=== PATIENT | female | born 1985 | race Caucasian/White ===

== ENCOUNTER → 2020-11-15 15:09 | Outpatient (BNVA) | payer MEDICAID, SELFPAY | PROVIDERS: Visit Provider Nurse Practitioner Women's Health | DX: N92.6 Irregular menstruation, unspecified (principal) | CPT/HCPCS: 81025 ==

== ENCOUNTER → 2020-12-12 08:51 | Outpatient (BNVA) | payer MEDICAID, SELFPAY | PROVIDERS: Visit Provider Obstetrics & Gynecology | DX: Z34.80 Encounter for supervision of other normal pregnancy, unspecified trimester (principal) | CPT/HCPCS: 80307; 84315; 84443; 85025; 86592; 86762; 86803; 86850; 86900; 87086; 87340; 87491; 87591; 87624; 87661; 87806 ==

== ENCOUNTER → 2021-02-09 14:13 | Outpatient (BNVA) | payer MEDICAID, SELFPAY | PROVIDERS: Visit Provider Obstetrics & Gynecology | DX: Z34.80 Encounter for supervision of other normal pregnancy, unspecified trimester (principal); N89.8 Other specified noninflammatory disorders of vagina | CPT/HCPCS: 87481; 87512; 87798; 87799 ==

== ENCOUNTER 2021-03-27 09:08 | Outpatient (CLI) | payer MEDICAID, SELFPAY ==
[2021-03-27 09:27] LABS: Basophils % 0.3 %; Eosinophils # 0.2 10^3/uL (0.0-0.8); Eosinophils % 2.3 %; Hematocrit 39.5 % (37.0-47.0); Hemoglobin 12.8 g/dL (11.5-15.3); Lymphocytes # 1.6 10^3/uL (0.8-4.8); Lymphocytes % 16.3 %; Mean Corpuscular HGB Conc 32.4 g/dL (30.0-36.0); Mean Corpuscular Hemoglobin 30.8 pg (28.0-34.0); Mean Corpuscular Volume 95.2 fl (81-99); Mean Platelet Volume 9.2 fL (7.4-10.4); Monocytes # 0.4 10^3/uL (0.2-0.9); Neutrophils # 7.49 10^3/uL (1.8-7.7); Neutrophils % 75.2 %; Nucleated Red Blood Cells % 0 %; Platelet Count 247 10^3/cmm (130-400); Red Blood Count 4.15 10^6/uL (4.1-5.3); Red Cell Distribution Width 12.1 % (12.1-15.1)
[2021-03-27 10:00] LABS: Glucose Tolerance 1 Hour Gest 136 mg/dL; Thyroid Stimulating Hormone 2.06 uIU/mL (0.27-4.20)
== END 2021-03-27 09:09 | disposition home or self-care (01) ==
LOC: LAB 09:12
PROVIDERS: Visit Provider Obstetrics & Gynecology
DX: Z34.80 Encounter for supervision of other normal pregnancy, unspecified trimester (principal)
CPT/HCPCS: 36415; 82950; 84315; 84443; 85025

== ENCOUNTER → 2021-05-26 15:00 | Outpatient (BNVA) | payer MEDICAID, SELFPAY | PROVIDERS: Visit Provider Obstetrics & Gynecology | DX: Z34.80 Encounter for supervision of other normal pregnancy, unspecified trimester (principal) | CPT/HCPCS: 84315; 87081 ==

== ENCOUNTER 2021-06-10 08:31 | Inpatient (IN) | payer MEDICAID, SELFPAY ==
[2021-06-10] VITALS (25 sets, daily range): BP systolic 86–126; BP diastolic 48–74; PULSE 62–95; RESP 16–17; TEMP 36.2–37.2; BMI 32.3
[2021-06-10] MEDS: miSOPROStol 100 mcg tablet 25 MCG VAGINAL ×4 (08:49→23:48)
[2021-06-10 09:17] LABS: Basophils % 0.2 %; Eosinophils # 0.2 10^3/uL (0.0-0.8); Eosinophils % 1.4 %; Hematocrit 39.9 % (37.0-47.0); Hemoglobin 13.4 g/dL (11.5-15.3); Lymphocytes # 2.8 10^3/uL (0.8-4.8); Mean Corpuscular HGB Conc 33.6 g/dL (30.0-36.0); Mean Corpuscular Hemoglobin 30.9 pg (28.0-34.0); Mean Corpuscular Volume 91.9 fl (81-99); Mean Platelet Volume 11.4 fL (7.4-10.4); Monocytes # 0.9 10^3/uL (0.2-0.9); Monocytes % 6.1 %; Neutrophils # 10.11 10^3/uL (1.8-7.7); Neutrophils % 71.5 %; Nucleated Red Blood Cells % 0 %; Platelet Count 221 10^3/cmm (130-400); Red Blood Count 4.34 10^6/uL (4.1-5.3); Red Cell Distribution Width 13.2 % (12.1-15.1); White Blood Count 14.1 10^3/uL (4.0-10.0)
--- NOTE | 2021-06-10 17:10 | PM.OPHPUD ---
Labor & Delivery H&P Update Date of Procedure: June 10, 2021 Date H&P Performed: 06/02/21 H&P update information: I have reviewed H&P completed within last 30 days, I have examined patient prior to procedure and No changes to prior documentation Changes to previous documentation: The patient is here for elective induction at term. She is 39 0/7 weeks. Admission Diagnosis: Related Problem List Diagnoses (1) Supervision of other normal : (2) Abnormal Pap smear of cervix: (3) GERD (gastroesophageal reflux disease): (4) Anxiety:
[2021-06-10] MEDS: famotidine 20 mg Tablet PO (21:33)
[2021-06-10] MEDS: BuSPIRONE 10 mg Tablet 5 MG PO (21:33)
[2021-06-11] VITALS (125 sets, daily range): BP systolic 91–164; BP diastolic 39–109; PULSE 73–108; RESP 16–18; TEMP 36.4–38.7; O2SAT 93–100
[2021-06-11] MEDS: promethazine 25 mg/mL SDV 1 mL IM (00:21)
[2021-06-11] MEDS: morphine 4 mg/mL SDV 1 mL 8 MG IM (00:21)
[2021-06-11] MEDS: BuSPIRONE 10 mg Tablet 5 MG PO ×2 (07:59→20:08)
[2021-06-11] MEDS: famotidine 20 mg Tablet PO ×2 (08:00→20:09)
[2021-06-11] MEDS: dextrose 5%-lactated ringers 1,000 ML 125 ML IV ×2 (08:00→17:15)
[2021-06-11] MEDS: oxytocin 30 UNIT/500 ML BAG IV (08:00)
[2021-06-11] MEDS: lactated ringers 1,000 ML 999 ML IV ×3 (11:40→19:41)
--- NOTE | 2021-06-11 12:35 | ANES.PREANE2 ---
Pre-Anesthetic Assessment Height/Weight: Height 1.57 m Weight 80.286 kg Temp Pulse Resp BP 98.2 F 77 18 107/56 06/11/21 11:28 06/11/21 12:26 06/11/21 12:11 06/11/21 12:26 Preop Diagnosis: labor epi Familial anesthetic complications: none Was Beta Kan taken within 24 hours: N/A Was Clonidine taken within 24 hours: N/A Last Intake: 08:00 Social Tobacco and No alcohol 1/2 pack(s) per day 10+ pack years Exam alert, oriented x 3, clear to auscultation bilaterally and regular rate & rhythm Airway Submandibular: within normal limits Cervical ROM: within normal limits Mallampati: Class I Dentition: full Pulmonary Asthma CV/HEM None reported None reported Hepatic None reported GI Gastroesophageal Reflux Disease Metabolic None reported Musc/skel None reported Neuropsych Anxiety and Depression Anesthetic Plan ASA status: 2 Anesthesia: Regional (specify below) (epidural) Risk of > 500 ml blood loss (7ml/kg in children): No Medications/Allergies Home Medications Medication Instructions Recorded Confirmed Last Taken Type albuterol sulfate 2.5 mg INHALATION Q4H PRN 11/15/20 06/10/21 Unknown History docusate sodium 100 mg capsule 100 mg PO DAILY PRN 11/15/20 06/10/21 06/09/21 21:30 History (Colace) metoclopramide HCl 5 mg tablet 5 mg PO DAILY PRN 11/15/20 06/10/21 06/09/21 21:30 History (Reglan) cetirizine 10 mg capsule (Zyrtec) 10 mg PO DAILY PRN #30 cap 11/29/20 06/10/21 06/09/21 21:30 Rx prenat.vits,louis,[id number] 1 tab PO DAILY #30 tab 02/08/21 06/10/21 06/09/21 21:30 Rx buspirone 5 mg tablet 5 mg PO BID #60 tab 03/27/21 06/10/21 06/10/21 07:30 Rx omeprazole 40 mg capsule,delayed 40 mg PO BID #60 cap 03/27/21 06/10/21 06/09/21 21:30 Rx release Allergies Allergy/AdvReac Type Severity Reaction Status Date / Time No Known Allergies Allergy Verified 06/02/21 15:05 Current Medications Generic Name Dose Route Start Last Admin Trade Name Chantell PRN Reason Stop Dose Admin Buspirone HCl 5 mg 06/10/21 21:00 06/11/21 07:59 Buspirone 10 Mg Tablet PO 5 mg BID RICARDO Administration Famotidine 20 mg 06/10/21 21:00 06/11/21 08:00 Famotidine 20 Mg Tablet PO 20 mg BID RICARDO Administration Dextrose/Lactated Ringer's 1,000 mls @ 125 mls/hr 06/10/21 08:25 06/11/21 08:00 Dextrose 5%-Lactated Ringers IV 125 mls/hr .Q8H PRN Administration per label comments Oxytocin 30 unit in 500 mls @ 1 mls/hr 06/11/21 08:00 06/11/21 12:00 Pitocin IV 10 milliunit/min .Q24H RICARDO 10 mls/hr Titration Protocol 1 MILLIUNIT/MIN Lactated Ringer's 1,000 mls @ 999 mls/hr 06/11/21 11:30 06/11/21 11:40 Lactated Ringers IV 999 mls/hr .Q1H1M PRN Administration See label comments PFSH Anesthesia Medical History Anxiety No pertinent past medical history neghx: htn,dm,thyroid,dvt/pe PCP: None Surgical History Hx of cholecystectomy (~2007) Hx of dilation and curettage (2011) blightetd ovum Family History Family/Other Breast cancer Maternal Great Grandmother--dx age 70's Grandmother Diabetes Paternal Denies family history of Colon cancer Ovarian cancer Heart disease Hypercholesteremia Hypertension Uterine cancer Thyroid disease Stroke Female Reproductive History : 4 Data Anesthesia : 06/10/21 08:40 Short CBC 06/10/21 Range/Units 08:40 WBC 14.1 H (4.0-10.0) 10^3/uL Hgb 13.4 (11.5-15.3) g/dL Hct 39.9 (37.0-47.0) % MCV 91.9 (81-99) fl Plt Count 221 (130-400) 10^3/cmm Neut % (Auto) 71.5 % Neut # (Auto) 10.11 H (1.8-7.7) 10^3/uL Cardiac Studies: No Data to Display
--- NOTE | 2021-06-11 12:48 | P.PN_ITS ---
Subjective Subjective: The patient has received 4 doses of cytotec and is now on pitocin. AROM performed with clear fluid. status is overall very reassuring with a category 1 tracing. SVE: 3/80/-2 Vitals/I&O/Wt Last Vital Signs Temp 98.2 F 06/11/21 11:28 Pulse 92 06/11/21 12:45 Resp 18 06/11/21 12:11 BP 139/70 06/11/21 12:43 Pulse Ox 93 06/11/21 12:45 06/10/21 06/11/21 06/11/21 22:59 06:59 14:59 Intake Total 800 / 800 400 / 1200 1027.00 / 1027.00 Balance 800 / 800 400 / 1200 1027.00 / 1027.00 Weight last 48 hrs Weight 177 lb Data : 06/10/21 08:40 A&P Assessment and plan (1) Supervision of other normal : continue pitocin induction anticipate Status: Acute Attestations Medical Necessity Statement*: She will be here 2 midnights Coding Level of Care Code Acute Warehouse Director for Chg Fwd Diagnoses Supervision of other normal Z34.80
--- NOTE | 2021-06-11 13:01 | ANES.PROC ---
Anesthesia Procedures Procedure/Date: 06/11/21 Epidural: Time Out Performed: Yes Consents Signed: Procedure Consent and NPO Consent Consent: requested by attending/covering physician, from patient, risks and benefits reviewed and patient agrees to proceed Lumbar Level: L3-L4 Epidural position: sitting Epidural procedure: sterile prep of area (betadine), 1% lidocaine to numb the area (3ml), 18 g needle, neg for paresthesia, test dose given, 1.5% xylocaine 1:200k epi (3ml/2ml), 0.2% Ropivacaine bolus ml (5ml), placed PCEA, no systemic response, sterile dressing applied, L.U.D. no apparent complications and 0.2% Ropiavacaine @ mls/hr (10ml/hr)
--- NOTE | 2021-06-11 14:39 | ANES.PROC ---
Anesthesia Procedures Procedure/Date: 06/11/21 Epidural bolus Procedure Narrative: Pt complaining of pressure. No sharp pain noted. RN stated Pt 5 cm dilated. Pt given 5ml Bupivacaine 0.5% MPF and 100mcg Fentanyl MPF via epidural. Pt tolerated well.
--- NOTE | 2021-06-11 20:05 | ANES.PROC ---
Anesthesia Procedures Procedure/Date: 06/11/21 Epidural: Time Out Performed: Yes Consents Signed: Procedure Consent and NPO Consent Consent: requested by attending/covering physician, from patient, risks and benefits reviewed and patient agrees to proceed Lumbar Level: L4-L5 Epidural position: sitting Epidural procedure: sterile prep of area (betadine), 1% lidocaine to numb the area (3ml), 18 g needle, neg for paresthesia, test dose given, 1.5% xylocaine 1:200k epi (3ml/2ml), 0.2% Ropivacaine bolus ml (5ml), placed PCEA, no systemic response, sterile dressing applied, L.U.D. no apparent complications and 0.2% Ropiavacaine @ mls/hr (10ml/hr) Additional Comments: Called to OB4 with pt C/o right side and back pain. Epidural catheter noted to be pulled back 3-4cm at skin from insertion. Spoke with pt and decided to D/c catheter with tip intact and replace epidural
--- NOTE | 2021-06-11 20:59 | P.PN_ITS ---
Subjective Subjective: The patient has been dilated to 7 cm for about 4 1/2 hours without change. She is having regular contractions. Over the past hour, she has had 2 decelerations followed now by minimal variability. Baseline 160's, minimal variability without decelerations. no accelerations. I discussed with the patient and her family that I would recommend proceeding to at this time. We have given ample time for the baby to descend and it appears to be a case of CPD. They agree and would like to proceed with at this time. Urgent ordered. Vitals/I&O/Wt Last Vital Signs Temp 99.0 F 06/11/21 19:18 Pulse 86 06/11/21 20:46 Resp 16 06/11/21 15:47 BP 96/53 06/11/21 20:46 Pulse Ox 98 06/11/21 20:06 06/11/21 06/11/21 06/11/21 06:59 14:59 22:59 Intake Total 400 / 1200 1027.00 / 1027.00 1406.25 / 2433.25 Output Total 300 / 300 Balance 400 / 1200 1027.00 / 1027.00 1106.25 / 2133.25 Weight last 48 hrs Weight 177 lb Physical Exam : MANUAL OB EXAM: dilated 7 cm, effaced fully and station -1 Urinary Catheter Management: Richardson Latex Free: Cath Placed During This Visit: yes Reason for Continuing Indwelling Catheter: Required Immobilization for Trauma or Surgery or Anesthesia Urinary Catheter Date of Insertion: 06/11/21 Urinary Catheter Time of Insertion: 14:02 Data : 06/10/21 08:40 A&P Assessment and plan (1) intolerance to labor, delivered, current hospitalization: Status: Acute (2) CPD (cephalo-pelvic disproportion): proceeding with at this time. Status: Acute Attestations Medical Necessity Statement*: The patient will be here for two midnights. Coding Level of Care Code Acute [facility] for g Fwd Diagnoses intolerance to labor, delivered, current hospitalization O77.9 CPD (cephalo-pelvic disproportion) O33.9
[2021-06-11] MEDS: citric acid-sodium citrate 30 mL UDC PO (21:26)
[2021-06-11] MEDS: metoclopramide 5 mg/mL SDV 2 mL 10 MG IVP (21:29)
--- NOTE | 2021-06-11 22:26 | P.OP_ITS ---
Operative Report Date of procedure: June 11, 2021 Pre-op diagnosis: Preop Diagnosis CPD, intolerance to labor Post-op diagnosis: same Post-op findings: term female in the cephalic presentation with a single nuchal cord Procedure done: primary Specimens removed/disposition: placenta-discarded Surgeon: Jillian Patel Anesthesia: Epidural Estimated blood loss (mL): 200 IV fluids (mL): 1,000 Urine output (mL): 300 Complications: none Findings: term female in the cephalic presentation. Normal appearing uterus, tubes and ovaries Condition: stable Disposition: floor Procedure: The patient was taken to the operating room where spinal anesthesia was administered and found to be adequate. She was prepped and draped in the normal sterile fashion in the dorsal supine position with a leftward tilt. A Pfannenstiel skin incision was made and carried down to the underlying layer of fascia. The fascia was nicked in the midline and extended laterally with the Barrett scissors. The fascia was then tented up and the rectus muscles dissected off sharply. The rectus muscles were and the peritoneum entered bluntly with the digit. The peritoneal incision was extended superiorly and inferiorly with good visualization of the bladder. The Raul O retractor was placed. It was clear of any bowel or omentum. The bladder flap was created sharply with the Metzenbaum scissors. A low transverse uterine incision was made and carried down to the bag of water. The bag of water was ruptured and t he uterine incision extended cephalocaudad. The scalp was grasped and brought through the incision. The nose and mouth were bulb suctioned. The shoulders and body delivered atraumatically. The baby was allowed to rest, while being dried, for 1 minute and then the cord was clamped and cut. The baby was handed to the waiting academic adviser. The placenta was delivered by expression. The uterus was exteriorized and cleared of all clots and debris. The uterine incision was closed with 0 Vicryl in a running fashion. A second imbricating layer of 3-0 Monocryl was used to close the uterus. The bladder flap was closed with 3-0 Monocryl. There was excellent hemostasis. The Raul O retractor was removed. The uterus was returned to the abdomen. The peritoneum was closed with 3-0 Monocryl, incorporating the rectus muscle. The fascia was closed with 0 Vicryl in 2 separate sutures overlapping in the midline. The skin was closed with absorbable jakub. Apgars on baby 8 at 1 minute and 9 at 5 minutes. weight 7 pounds 4 ounces. Mother and baby were stable post delivery.
[2021-06-12] VITALS (13 sets, daily range): BP systolic 111–133; BP diastolic 57–87; PULSE 66–92; RESP 15–18; TEMP 36.7–37.6; O2SAT 96–99
[2021-06-12] MEDS: dextrose 5%-lactated ringers 1,000 ML 125 ML IV ×2 (00:15→08:26)
[2021-06-12] MEDS: ketorolac 30 mg/mL INJ IVP ×2 (00:23→05:23)
[2021-06-12] MEDS: oxyCODONE-APAP 5-325 mg Tablet PO ×4 (00:24→22:38)
[2021-06-12] MEDS: acetaminophen 325 mg Tablet 650 MG PO (01:02)
--- NOTE | 2021-06-12 03:41 | PC.NURSE ---
This nurse pulled 1 buspirone 10mg tablet from the the pts med box in the med room, after scanning the medication this nurse dropped the medication on the floor. This nurse then went and pulled a second buspirone 10 mg tablet from the pts box in the med room and gave to the pt to take. This nurse and Nita Carrizales RN wasted the first tablet together.
--- NOTE | 2021-06-12 07:49 | P.PN_ITS ---
Subjective Subjective: The patient is doing well this morning. Slight amount of pain on her right side. Otherwise, she is ambulating, tolerating a clear diet and pain is controlled. Vitals/I&O/Wt Last Vital Signs Temp 98.6 F 06/12/21 06:15 Pulse 71 06/12/21 06:15 Resp 16 06/12/21 06:15 BP 118/65 06/12/21 06:15 Pulse Ox 98 06/12/21 06:15 06/11/21 06/12/21 06/12/21 22:59 06:59 14:59 Intake Total 2113.434 / 3140.434 1000 / 4140.434 Output Total 900 / 900 1400 / 2300 Balance 1213.434 / 2240.434 -400 / 1840.434 Weight last 48 hrs Weight 177 lb Physical Exam Const: COMMON NORMALS: no acute distress, patient oriented x3, no limitations, healthy appearing, alert and well nourished GENERAL APPEARANCE: cooperative, comfortable, well kempt and well developed ORIENTATION/CONSCIOUSNESS: Yes awake, Yes oriented to person, Yes oriented to place and Yes oriented to time Resp: COMMON NORMALS: normal respiratory effort EFFORT & INSPECTION: Yes able to speak in complete sentences GI: COMMON NORMALS: Soft to palpation and non-tender INSPECTION: Yes abdominal distension PALPATION: Yes Soft to palpation Extremity: COMMON NORMALS: normal to inspection and no calf tenderness Neuro: COMMON NORMALS: patient oriented x3 SENSORIUM/ORIENTATION: Yes alert, Yes oriented to person, Yes oriented to place and Yes oriented to time Psych: APPEARANCE: Yes well kempt Urinary Catheter Management: Richardson Latex Free: Cath Placed During This Visit: yes Reason for Continuing Indwelling Catheter: Required Immobilization for Trauma or Surgery or Anesthesia Urinary Catheter Date of Insertion: 06/11/21 Urinary Catheter Time of Insertion: 14:02 Data : 06/10/21 08:40 A&P Assessment and plan (1) CPD (cephalo-pelvic disproportion): doing well postoperatively routine post op plan increase ambulation to have flatus Status: Acute Attestations Medical Necessity Statement*: she has already been here 2 midnights Coding Level of Care Code Acute 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
[2021-06-12] MEDS: prenatal vitamin Capsule 1 CAP PO (08:26)
[2021-06-12] MEDS: docusate sodium 100 mg Capsule PO ×2 (08:26→17:54)
[2021-06-12] MEDS: ferrous sulfate EC 325 mg Tablet PO ×2 (08:29→17:54)
--- NOTE | 2021-06-12 08:56 | PC.NURSE ---
patient ambulated at this time, no c/o dizziness or lightheadedness. Patient tolerated walking well.
[2021-06-12] MEDS: BuSPIRONE 10 mg Tablet 5 MG PO ×2 (09:28→17:54)
[2021-06-12] MEDS: famotidine 20 mg Tablet PO ×2 (09:28→17:54)
[2021-06-12 10:47] LABS: Hematocrit 31.9 % (37.0-47.0); Hemoglobin 10.7 g/dL (11.5-15.3); Mean Corpuscular HGB Conc 33.5 g/dL (30.0-36.0); Mean Corpuscular Hemoglobin 31.2 pg (28.0-34.0); Platelet Count 170 10^3/cmm (130-400); Red Blood Count 3.43 10^6/uL (4.1-5.3); Red Cell Distribution Width 13.3 % (12.1-15.1); White Blood Count 16.6 10^3/uL (4.0-10.0)
[2021-06-12] MEDS: ibuprofen 800 mg tablet PO ×2 (15:07→21:28)
[2021-06-12] MEDS: cetirizine 10 mg Tablet PO (17:54)
[2021-06-13 04:18] VITALS: RESP 15
[2021-06-13] MEDS: oxyCODONE-APAP 5-325 mg Tablet PO ×2 (04:18→09:40)
[2021-06-13 04:19] VITALS: BP 104/57; PULSE 70; TEMP 36.6; O2SAT 98
[2021-06-13] MEDS: BuSPIRONE 10 mg Tablet 5 MG PO (08:18)
[2021-06-13] MEDS: docusate sodium 100 mg Capsule PO (08:19)
[2021-06-13] MEDS: cetirizine 10 mg Tablet PO (08:19)
[2021-06-13] MEDS: ibuprofen 800 mg tablet PO (08:19)
[2021-06-13] MEDS: famotidine 20 mg Tablet PO (08:19)
[2021-06-13 09:40] VITALS: RESP 18
[2021-06-13 11:04] VITALS: BP 106/64; PULSE 68; RESP 16; TEMP 36.7; O2SAT 99
--- NOTE | 2021-06-13 11:47 | PM.DCS ---
Discharge Providers Date of Admission: 06/10/21 08:31 Date of Discharge: June 13, 2021 Attending Provider at Admission: Jillian Patel MD Attending Provider at Discharge: Jillian Patel MD Diagnoses at Discharge Discharge Diagnosis (1) CPD (cephalo-pelvic disproportion): Status: Acute Reason for Visit Reason for Visit: Induction of labor Hospital Course Hospital Course The patient was admitted for induction of labor at term. She achieved 7 cm dilation and had arrest of labor. She underwent a primary . She did well postoperatively and was ready for discharge on day #2 Physical Exam Narrative: Doing well this morning. Abdomen is still distended. She reports that she is passing gas. She is not ambulating much per nurse. Const: COMMON NORMALS: no acute distress, patient oriented x3, no limitations, healthy appearing, alert and well nourished GENERAL APPEARANCE: cooperative, comfortable, well kempt and well developed ORIENTATION/CONSCIOUSNESS: Yes awake, Yes oriented to person, Yes oriented to place and Yes oriented to time Resp: COMMON NORMALS: normal respiratory effort EFFORT & INSPECTION: Yes able to speak in complete sentences GI: COMMON NORMALS: Soft to palpation and non-tender INSPECTION: Yes abdominal distension PALPATION: Yes Soft to palpation Extremity: COMMON NORMALS: no calf tenderness Neuro: COMMON NORMALS: patient oriented x3 SENSORIUM/ORIENTATION: Yes alert, Yes oriented to person, Yes oriented to place and Yes oriented to time Psych: APPEARANCE: Yes well kempt Urinary Catheter Management: Richardson Latex Free: Cath Placed During This Visit: yes, but has since been removed by the nurse Reason for Continuing Indwelling Catheter: Decision to DC Catheter Urinary Catheter Date of Insertion: 06/11/21 Urinary Catheter Time of Insertion: 14:02 Date Urinary Catheter Removed: 06/12/21 Time Urinary Catheter Discontinued: 08:30 Discharge Data Studies Completed and Pending Laboratory Results WBC 16.6 10^3/uL (4.0-10.0) H 06/12/21 10:25 RBC 3.43 10^6/uL (4.1-5.3) L 06/12/21 10:25 Hgb 10.7 g/dL (11.5-15.3) L 06/12/21 10:25 Hct 31.9 % (37.0-47.0) L 06/12/21 10:25 MCV 93.0 fl (81-99) 04/18/22 10:25 MCH 31.2 pg (28.0-34.0) 06/12/21 10:25 MCHC 33.5 g/dL (30.0-36.0) 06/12/21 10:25 RDW 13.3 % (12.1-15.1) 06/12/21 10:25 Plt Count 170 10^3/cmm (130-400) 06/12/21 10:25 MPV 11.0 fL (7.4-10.4) H 06/12/21 10:25 Neut % (Auto) 71.5 % 06/10/21 08:40 Lymph % (Auto) 20.0 % 06/10/21 08:40 [place] % (Auto) 6.1 % 06/10/21 08:40 Eos % (Auto) 1.4 % 06/10/21 08:40 Baso % (Auto) 0.2 % 06/10/21 08:40 Neut # (Auto) 10.11 10^3/uL (1.8-7.7) H 06/10/21 08:40 Lymph # (Auto) 2.8 10^3/uL (0.8-4.8) 06/10/21 08:40 [place] # (Auto) 0.9 10^3/uL (0.2-0.9) 06/10/21 08:40 Eos # (Auto) 0.2 10^3/uL (0.0-0.8) 06/10/21 08:40 Baso # (Auto) 0.0 10^3/uL (0.0-0.1) 06/10/21 08:40 Nucleated RBC % (auto) 0 % 06/10/21 08:40 Nucleated RBCs # 0.0 /100WBC 06/10/21 08:40 Vitals Last Vital Signs Temp 98.0 F 06/13/21 11:04 Pulse 68 06/13/21 11:04 Resp 16 06/13/21 11:04 BP 106/64 06/13/21 11:04 Pulse Ox 99 06/13/21 11:04 Discharge Plan Discharge Patient Disposition: Home Condition: Stable Prescriptions: New ibuprofen 800 mg Tablet 800 mg PO TID Qty: 30 0RF oxycodone-acetaminophen 5-325 mg Tablet 1 tab PO Q4H PRN (Reason: Moderate To Severe Pain) Qty: 30 0RF docusate sodium 100 mg Capsule 100 mg PO BID Qty: 60 0RF ferrous sulfate 325 mg (65 mg iron) Tablet,Delayed Release (Dr/Ec) 325 mg PO BIDWM Qty: 60 2RF simethicone 80 mg Tablet,Chewable 80 mg PO QID PRN (Reason: Gas distention) Qty: 30 0RF Continued albuterol sulfate 2.5 mg /3 mL (0.083 %) solution for nebulization 2.5 mg inhalation Q4H PRN (Reason: Adequate Ventilation) 0RF docusate sodium [Colace] 100 mg capsule 100 mg PO DAILY PRN (Reason: Constipation) 0RF metoclopramide HCl [Reglan] 5 mg tablet 5 mg PO DAILY PRN (Reason: Acid Reflux) 0RF buspirone 5 mg tablet 5 mg PO BID Qty: 60 6RF omeprazole 40 mg capsule,delayed release(DR/EC) 40 mg PO BID Qty: 60 5RF Zyrtec 10 mg capsule 10 mg PO DAILY PRN (Reason: seasonal allergies) Qty: 30 6RF prenat.vits,louis,uhh-owjd-trlxs Tablet 1 tab PO DAILY Qty: 30 12RF Discharge Orders: Discharge Order (Routine); Ordered 06/13/21 Ordered By: Jillian Patel Patient Instructions: Depression (DC), Bleeding (DC), Preeclampsia and Eclampsia After Delivery (GEN), OB - Hina/Dany, OB Discharge Report, OB Food/Drug Interaction Guide, OB Care at Home, Opioid Safety, OB Home Care, Abnormal Bleeding Discharge Attestations Time Spent in Discharge Care*: less than 30 min Quality Metrics Clinical Quality Measures [ No reported AMI, CVA or VTE this stay] Coding Level of Care Code Acute Chg FW DC note Diagnoses CPD (cephalo-pelvic disproportion) O33.9
[2021-06-13] MEDS: simethicone 80 mg Chew PO (11:48)
[2021-06-13 14:49] VITALS: BP 106/67; PULSE 68; RESP 18; TEMP 36.7; O2SAT 98
== END 2021-06-13 14:30 | disposition home or self-care (01) | DRG 788 ==
LOC: OPOB 08:32 → OBGYN 08:32
PROVIDERS: Admitting Provider Obstetrics & Gynecology; Visit Provider Obstetrics & Gynecology
PROC: 10D00Z1 Extraction of Products of Conception, Low, Open Approach (ICD-10-PCS; CPT 59514; principal; 2021-06-11 21:15)
DX: O33.9 Maternal care for disproportion, unspecified (principal); O99.344 Other mental disorders complicating childbirth; O99.334 Smoking (tobacco) complicating childbirth; F17.210 Nicotine dependence, cigarettes, uncomplicated; O76 Abnormality in fetal heart rate and rhythm complicating labor and delivery; O62.1 Secondary uterine inertia; O69.9XX0 Labor and delivery complicated by cord complication, unspecified, not applicable or unspecified; Z3A.39 39 weeks gestation of pregnancy; Z37.0 Single live birth; O75.89 Other specified complications of labor and delivery; K21.9 Gastro-esophageal reflux disease without esophagitis; J30.2 Other seasonal allergic rhinitis; F41.9 Anxiety disorder, unspecified; Z79.51 Long term (current) use of inhaled steroids
CPT/HCPCS: 36415; 51702; 59025; 85025; 85027; 96372; J1885; J2270; J2274; J2550; J2765; J2795; J3010; J3490; J7030

== ENCOUNTER → 2022-04-05 14:45 | Outpatient (BNVA) | payer MEDICAID, SELFPAY | PROVIDERS: Visit Provider Nurse Practitioner Women's Health | DX: R87.619 Unspecified abnormal cytological findings in specimens from cervix uteri (principal) | CPT/HCPCS: 87624 ==

== ENCOUNTER → 2022-05-07 13:41 | Outpatient (BNVA) | payer MEDICAID, SELFPAY | PROVIDERS: Visit Provider Nurse Practitioner Women's Health | DX: Z34.90 Encounter for supervision of normal pregnancy, unspecified, unspecified trimester (principal) | CPT/HCPCS: 80307; 81025; 84315; 84443; 85027; 86592; 86762; 86803; 86850; 86900; 87086; 87340; 87806 ==

== ENCOUNTER → 2022-06-18 11:40 | Outpatient (BNVA) | payer MEDICAID, SELFPAY | PROVIDERS: Visit Provider Obstetrics & Gynecology | DX: Z34.90 Encounter for supervision of normal pregnancy, unspecified, unspecified trimester (principal) | CPT/HCPCS: 80307; 84315; 87491; 87591; 87624; 87661 ==

== ENCOUNTER → 2022-07-09 10:44 | Outpatient (BNVA) | payer MEDICAID, SELFPAY | PROVIDERS: Visit Provider Obstetrics & Gynecology | DX: O09.529 Supervision of elderly multigravida, unspecified trimester (principal); Z3A.00 Weeks of gestation of pregnancy not specified | CPT/HCPCS: 81511; 84315 ==

== ENCOUNTER 2022-08-20 07:00 | Outpatient (CLI) | payer MEDICAID, SELFPAY ==
--- NOTE | 2022-08-20 07:15 | US_ITS ---
WS: [id number] OBSTETRICAL ULTRASOUND COMPLETE HISTORY: Z34.92 - Encounter for supervision of normal COMPARISON: 05/28/2022 Single intrauterine gestation in breech presentation. Cervix is Closed and normal length. Cervical length is 3.5 cm. Normal amount of amniotic fluid surrounds the fetus. Placenta: Fundal, no previa or abruption. Placenta grade 1 Heart: 164 BPM. 4 chambers are not identified due to position. No outflow tracks identified. Anatomy: Intracranial structures and spine are normal. kidneys, stomach and urinary bladd er are unremarkable. Abdominal wall, three-vessel cord and cord insertion site are normal. 4 extremities are present. profile: Limited. Gender: Female measurements: BPD = 5.2 cm = 21w5d; 16th percentile HC = 19.3 cm = 21w4d; 6th percentile AC = 17.6 cm = 22w4d; 40th percentile FL = 3.8 cm = 22w2d; 29th percentile EFW: 491 g. 45th percentile Biometry is internally concordant. AGA by ultrasound: 22w0d YANCI by ultrasound: 12/24/2022 US/US OB >= 14 weeks fetus [id number] IMPRESSION: 1. Single intrauterine gestation of 22w0d with an YANCI of 12/24/2022. Appropria te growth since the prior first trimester ultrasound. 2. Limited evaluation of the heart, profile and lips. The remaining misael leon appears normal.
== END 2022-08-20 07:01 | disposition home or self-care (01) ==
PROVIDERS: PCP Obstetrics & Gynecology; Visit Provider Obstetrics & Gynecology
DX: Z34.92 Encounter for supervision of normal pregnancy, unspecified, second trimester (principal); Z3A.22 22 weeks gestation of pregnancy
CPT/HCPCS: 76805

== ENCOUNTER → 2022-10-01 08:29 | Outpatient (BNVA) | payer MEDICAID, SELFPAY | PROVIDERS: Visit Provider Obstetrics & Gynecology | DX: Z34.90 Encounter for supervision of normal pregnancy, unspecified, unspecified trimester (principal) | CPT/HCPCS: 82950; 84315 ==

== ENCOUNTER 2022-10-22 09:26 | Outpatient (CLI) | payer MEDICAID, SELFPAY ==
[2022-10-22 10:29] LABS: Glucose Fasting Gestational 97 mg/dL (65-115)
[2022-10-22 12:23] LABS: Glucose 1 Hour 210 mg/dL
[2022-10-22 13:20] LABS: Glucose 2 Hour 185 mg/dL
[2022-10-22 13:57] LABS: Glucose 3 Hour 172 mg/dL
== END 2022-10-22 09:27 | disposition home or self-care (01) ==
PROVIDERS: PCP Obstetrics & Gynecology; Visit Provider Obstetrics & Gynecology
DX: R73.09 Other abnormal glucose (principal)
CPT/HCPCS: 36415; 82951; 82952

== ENCOUNTER → 2022-11-26 10:30 | Outpatient (BNVA) | payer MEDICAID, SELFPAY | PROVIDERS: Visit Provider Obstetrics & Gynecology | DX: Z34.90 Encounter for supervision of normal pregnancy, unspecified, unspecified trimester (principal) | CPT/HCPCS: 84315; 87081 ==

== ENCOUNTER 2022-12-13 10:04 | Inpatient (IN) | payer MEDICAID, SELFPAY ==
--- NOTE | 2022-12-10 09:47 | ANES.PREANE2 ---
Pre-Anesthetic Assessment Height/Weight: Height 1.57 m Operation Date: 12/13/22 12:20 Proposed Procedures p Repeat section 66484, bilateral tubal ligation 37431,O34.219, Z30.2(Not Applicable) - Elbert Soler MD Familial anesthetic complications: Epidural pulled out last , requiring replacement Social No alcohol and No tobacco Exam alert, oriented x 3, clear to auscultation bilaterally and regular rate & rhythm Airway Dentition: full Pulmonary childhood asthma GI Gastroesophageal Reflux Disease Metabolic gestational DM Anesthetic Plan ASA status: 2 Anesthesia: Regional (specify below) Other: Spinal Risk of > 500 ml blood loss (7ml/kg in children): Yes, adequate IV access and fluids planned Medications/Allergies Home Medications Medication Instructions Recorded Confirmed Last Taken Type albuterol sulfate 2.5 mg/3 mL 2.5 mg inhalation Q4H PRN Adequate 11/15/20 12/03/22 Unknown History (0.083 %) solution for nebulization Ventilation vitamin with calcium See Rx Instructions .Route 03/14/22 12/03/22 Unknown Rx no.72-iron 27 mg-folic acid 1 mg .COMPLEX #30 tabs tablet (M- Plus) omeprazole 40 mg capsule,delayed 40 mg PO BID #30 caps 04/05/22 12/03/22 Unknown Rx release buspirone 5 mg tablet See Rx Instructions .Route 06/18/22 12/03/22 Unknown Rx .COMPLEX #60 tabs sertraline 25 mg tablet See Rx Instructions .Route 10/24/22 12/03/22 Unknown Rx .COMPLEX #30 tabs cetirizine 10 mg capsule (Zyrtec) 10 mg PO DAILY PRN seasonal 10/30/22 12/03/22 Unknown Rx allergies #30 caps blood-glucose meter (Blood Glucose #1 ea 11/20/22 12/03/22 Unknown Rx Monitoring kit) Allergies Allergy/AdvReac Type Severity Reaction Status Date / Time No Known Allergies Allergy Verified 12/03/22 10:26 [facility] Anesthesia Medical History Anxiety No pertinent past medical history neghx: htn,dm,thyroid,dvt/pe PCP: None Surgical History Hx of cholecystectomy (~2007) Hx of dilation and curettage (2012) blightetd ovum Family History Family/Other Breast cancer Maternal Great Grandmother--dx age 70's Grandmother Diabetes Paternal Denies family history of Colon cancer Ovarian cancer Heart disease Hypercholesteremia Hypertension Uterine cancer Thyroid disease Stroke Data Anesthesia Cardiac Studies: No Data to Display
[2022-12-13] VITALS (23 sets, daily range): BP systolic 105–129; BP diastolic 52–82; PULSE 78–99; RESP 14–16; TEMP 36.4; O2SAT 99–100; BMI 34.2
--- NOTE | 2022-12-13 11:15 | ANES.PAUD2 ---
Pre-Anesthetic Update Pre-Anesthetic Assessment: Date of Surgery/Procedure: 12/13/22 Proposed Procedure: Operation Date: 12/13/22 12:20 Proposed Procedures p Repeat section 82552, bilateral tubal ligation 09358,O34.219, Z30.2(Not Applicable) - Elbert Soler MD Any changes to Pre-Anesthetic Assessment?: No Vitals: Pulse Rate 85 12/13/22 10:13 Blood Pressure 116/68 12/13/22 10:13 Exam: Pre-Anes Outpt Exam: alert, oriented x 3, clear to auscultation bilaterally and regular rate & rhythm Cardiac Studies: No Data to Display
[2022-12-13] MEDS: lactated ringers 1,000 ML 999 ML IV (12:00)
[2022-12-13 12:06] LABS: Basophils % 0.3 %; Eosinophils # 0.1 10^3/uL (0.0-0.8); Eosinophils % 1.2 %; Hematocrit 38.2 % (36-47); Lymphocytes % 20.6 %; Mean Corpuscular HGB Conc 32.2 g/dL (30-55); Mean Corpuscular Hemoglobin 30.1 pg (27-33); Mean Corpuscular Volume 93.4 fl (85-98); Mean Platelet Volume 10.3 fL (7.4-10.4); Monocytes # 0.6 10^3/uL (0.2-0.9); Monocytes % 5.9 %; Neutrophils # 6.84 10^3/uL (1.8-7.7); Neutrophils % 71.5 %; Nucleated Red Blood Cells % 0 %; Platelet Count 202 10^3/cmm (157-399); Red Blood Count 4.09 10^6/uL (3.85-5.65); Red Cell Distribution Width 13.2 % (12.1-15.1); White Blood Count 9.56 10^3/uL (3.29-11.43)
[2022-12-13] MEDS: citric acid-sodium citrate 30 mL UDC PO (12:10)
[2022-12-13] MEDS: famotidine 20 mg/2 mL INJ IVP (12:11)
[2022-12-13] MEDS: metoclopramide 5 mg/mL SDV 2 mL 10 MG IVP (12:11)
--- NOTE | 2022-12-13 12:12 | P.HP_ITS ---
Providers/Chief Complaint Admitting Physician: Elbert Soler MD Primary PILE DRIVING SETTER: Elbert Soler MD Chief Complaint: repeat and permanent sterilization HPI PILE DRIVING SETTER History of Present Illness 37 y.o. EDC December 12, 2022 At 40 w 1 d No complications No c/o + active movements h/o x one wants repeat does not want trial of labor patient wants permanent sterilization now scheduled for repeat and bilateral partial salpingectomy Medications/Allergies Home Medications Medication Instructions Recorded Confirmed Last Taken Type albuterol sulfate 2.5 mg/3 mL 2.5 mg inhalation Q4H PRN Adequate 11/15/20 12/10/22 Unknown History (0.083 %) solution for nebulization Ventilation vitamin with calcium See Rx Instructions .Route 03/14/22 12/10/22 Unknown Rx no.72-iron 27 mg-folic acid 1 mg .COMPLEX #30 tabs tablet (M-Jazlyn Plus) omeprazole 40 mg capsule,delayed 40 mg PO BID #30 caps 04/05/22 12/10/22 Unknown Rx release buspirone 5 mg tablet See Rx Instructions .Route 06/18/22 12/10/22 Unknown Rx .COMPLEX #60 tabs sertraline 25 mg tablet See Rx Instructions .Route 10/24/22 12/10/22 Unknown Rx .COMPLEX #30 tabs cetirizine 10 mg capsule (Zyrtec) 10 mg PO DAILY PRN seasonal 10/30/22 12/10/22 Unknown Rx allergies #30 caps blood-glucose meter (Blood Glucose #1 ea 11/20/22 12/10/22 Unknown Rx Monitoring kit) Allergies Allergy/AdvReac Type Severity Reaction Status Date / Time No Known Allergies Allergy Verified 12/10/22 10:38 PFSH PILE DRIVING SETTER PFSH: Medical History Anxiety No pertinent past medical history neghx: htn,dm,thyroid,dvt/pe PCP: None Surgical History Hx of cholecystectomy (~2007) Hx of dilation and curettage (2011) blightetd ovum Family History Family/Other Breast cancer Maternal Great Grandmother--dx age 70's Grandmother Diabetes Paternal Denies family history of Colon cancer Ovarian cancer Heart disease Hypercholesteremia Hypertension Uterine cancer Thyroid disease Stroke History History History 5 Term 2 0 Miscarriages/Ectopic 2 Living Children 2 Care YANCI Calculator Estimated Delivery Date Method Current WG Current Estimate 12/20/22 Ultrasound #1 39w 0d Other Estimates 12/12/22 LMP (Certain) 40w 1d 12/24/22 Ultrasound #2 38w 3d Vitals/I&O/Wt Last Vital Signs Pulse 85 12/13/22 11:15 BP 111/60 12/13/22 11:15 Physical Exam Const: COMMON NORMALS: no acute distress, average body habitus, patient oriented x3, healthy appearing and alert Resp: COMMON NORMALS: normal respiratory effort and clear to auscultation bilaterally Cardio: COMMON NORMALS: regular rate and regular rhythm GI: COMMON NORMALS: Normal to inspection, nondistended, normoactive bowel sounds present, Soft to palpation and non-tender OTHER: Fundal height 37 cm Data 12/13/22 11:55 Other data: External monitor: heart tracing good variability, + accelerations Results Labs OB ([facility]): Obstetrics US 09/20/22 Blood Type A Positive 05/07/22 Antibody Screen TNP 05/07/22 Hct 38.2 % (36-47) 12/13/22 Hgb 12.30 g/dL (11.27-16.99) 12/13/22 Rho(D) Type Positive 05/07/22 Plt Count 202 10^3/cmm (157-399) 12/13/22 Hep Bs Antigen Non-reactive (Nonreactive) 05/07/22 Hepatitis C Antibody Non-reactive (Nonreactive) 05/07/22 Rubella IgG Antibody 83.8 IU/mL (0.0-10.0) H 05/07/22 RPR Nonreactive (Nonreactive) 05/07/22 TSH 1.66 uIU/mL (0.27-4.20) 05/07/22 Quad Test Interpret See note 07/09/22 Urine Protein Negative (Negative) 12/10/22 Urine Glucose (UA) Negative (Normal) 12/10/22 Glucose 1 Hr 50 gm 167 mg/dL (85-140) H 10/01/22 Gest Glucose Tolerance mg/dL 10/22/22 Estriol MoM 0.65 07/09/22 A&P Assessment and plan (1) : 40 w 1 d h/o x one patient wants repeat c-s does not want trial of labor desires permanent sterilization tubal consent signed November 12, 2022 plan RCS, BTL procedures and risks explained, including, but not limited to, infection, bleeding, injury to internal organs, anesthesia, blood transfusions patient understands and wants to proceed (2) History of : (3) Sterilization consult: Attestations Medical Necessity Statement*: patient at 40 weeks, h/o , admitted for repeat and bilateral partial salpingectomy Coding Level of Care Code Acute Code for Chg Fwd Diagnoses Z34.90 History of Z98.891 Sterilization consult Z30.09 Time Spent (min) 30
[2022-12-13] MEDS: ceFAZolin 2,000 MG in sodium chloride 0.9% (plus) 50 ML 100 MG IV (12:55)
--- NOTE | 2022-12-13 14:25 | P.OP_ITS ---
Operative Report Date of procedure: December 13, 2022 Pre-op diagnosis: 40 weeks gestation Previous x one For repeat Desired permanent sterilization Post-op diagnosis: same Post-op findings: Normal placenta and cord Normal uterus, tubes, and ovaries cord gases obtained Procedure done: Repeat low-transverse Bilateral partial salpingectomy Implants: none Specimens removed/disposition: cord gases sent to lab placenta, discarded Surgeon: Elbert Soler MD Anesthesia: General and Spinal Estimated blood loss (mL): 800 Complications: none Condition: stable Disposition: floor Brief History: 37 y.o. EDC December 12, 2022 At 40 w 1 d No complications h/o x one wants repeat does not want trial of labor patient wants permanent sterilization now scheduled for repeat and bilateral partial salpingectomy Procedure: Patient was taken to the operating room, placed supine in the left lateral tilt position. Spinal anesthesia and a Richardson catheter were already placed. However, spinal anesthesia was not effective. General endotracheal anesthesia was induced. The abdomen was prepped and draped in the usual sterile fashion. A Pfannenstiel incision was made over an old scar and carried down through skin and subcutaneous tissue and fascia. The fascial incision was extended laterally with Barrett scissors. The fascia was from the underlying rectus muscles. The rectus muscles were split in the midline. The peritoneum was entered bluntly avoiding underlying organs. A bladder flap was created. A low transverse uterine incision was made and extended laterally bluntly avoiding the uterine vessels. Clear amniotic fluid was seen. The baby was delivered in cephalic presentation atraumatically. The baby was suctioned. The cord was clamped and cut and the baby was handed to an awaiting ems helicopter pilot. Cord gases were obtained. The placenta was manually removed intact. The uterus was exteriorized. The uterine cavity was bluntly curetted with wet laps. The uterine incision was then closed with a continuous interlocking stitich of O chromic. Adequate hemostasis was seen. No bleeding was seen. Attention was then turned to the bilateral tubal ligation. The left fallopian tube was identified to its fimbrial end. The mid-tube region was grasped with a Joshua and an opening was made in the mesosalpinx. The fallopian tube was then ligated proximally and distally with a free tie of 2-O chromic. A 3 cm segment of fallopian tube was excised using Metzenbaum scissors. The proximal and distal ends were cauterized with the bovie. The right fallopian tube was similarly identified to its fimbrial end. An opening was made in the mesaosalpinx and the right fallopian tube was ligated proximally and distally with a tie of 2-O chromic. A 3 cm segment of fallopian tube was excised using Metzenbaum scissors. The proximal and distal ends were cauterized with the bovie. No bleeding was seen. The uterine incision was again inspected and found to have good hemostasis. The uterus was returned into the abdominal cavity. Inspection of the tubal ligation sites and the uterine incision showed adequate hemostasis. The fascia was then closed with a continuous stitch of O-Vicryl. Additional interrupted stitches of O-Vicryl were used for fascial closure. The subcutan eous tissue was irrigated and inspected for hemostasis. The skin was then reapproximated using Insorb jakub. Postoperative condition stable Disposition to recovery room Estimated blood loss 800 cc, no replacement Sponge, needle, and instrument counts were correct x two There were no complications
--- NOTE | 2022-12-13 16:00 | ANE.PACU2 ---
Inpatient post-anesthesia follow up: Airway intact: Yes Vital signs: Temperature 97.7 F Pulse Rate 73 Respiratory Rate 14 Blood Pressure 103/59 Pulse Oximetry 100 Oxygen Delivery Me thod Room Air Oxygen Flow Rate Fraction of Inspir ed Oxygen Hydration adequate: Yes Nausea and vomiting: No Pain level: 1 Mental status: Baseline
[2022-12-13] MEDS: sertraline 50 mg Tablet 25 MG PO (20:47)
[2022-12-13] MEDS: BuSPIRONE 10 mg Tablet 5 MG PO (20:48)
[2022-12-13] MEDS: ketorolac 30 mg/mL INJ IVP (20:56)
[2022-12-13] MEDS: dextrose 5%-lactated ringers 1,000 ML 125 ML IV (20:57)
[2022-12-13] MEDS: HYDROcodone-acetaminophen 5-325 mg Tablet PO (23:01)
--- NOTE | 2022-12-14 00:13 | PC.NURSE ---
This advertising writer was standby assistance as pt ambulated one time around OB department. Pt tolerated well and states she is passing flatus at this time.
[2022-12-14 00:24] VITALS: BP 112/58; PULSE 69
[2022-12-14 01:48] VITALS: BP 102/65; PULSE 74
[2022-12-14 02:48] VITALS: BP 100/59; PULSE 72
[2022-12-14 02:52] LABS: Hematocrit 32.5 % (36-47); Mean Corpuscular HGB Conc 31.7 g/dL (30-55); Mean Corpuscular Hemoglobin 29.9 pg (27-33); Mean Corpuscular Volume 94.5 fl (85-98); Mean Platelet Volume 10.4 fL (7.4-10.4); Platelet Count 183 10^3/cmm (157-399); Red Blood Count 3.44 10^6/uL (3.85-5.65); Red Cell Distribution Width 13.2 % (12.1-15.1); White Blood Count 12.74 10^3/uL (3.29-11.43)
[2022-12-14] MEDS: ketorolac 30 mg/mL INJ IVP (03:04)
--- NOTE | 2022-12-14 07:09 | ANES.PREANE2 ---
Pre-Anesthetic Assessment Height/Weight: Height 1.57 m Weight 84.822 kg Temp Pulse Resp BP Pulse Ox O2 Del Method 97.6 F 72 14 100/59 100 Room Air 12/13/22 15:00 12/14/22 02:48 12/13/22 15:00 12/14/22 02:48 12/13/22 15:00 12/13/22 09:50 Preop Diagnosis: gerd, diarrhea, abdminal pain Operation Date: 12/13/22 12:20 Proposed Procedures p Repeat section 16223, bilateral tubal ligation 60814,O34.219, Z30.2(Not Applicable) - Elbert Soler MD Was Beta Kan taken within 24 hours: N/A Was Clonidine taken within 24 hours: N/A Last intake: Intake Last Liquid Date 12/12/22 Last Liquid Time 21:00 Last Solid Date 12/12/22 Last Solid Time 21:00 Social No alcohol and No tobacco Exam alert, oriented x 3, clear to auscultation bilaterally and regular rate & rhythm Airway Submandibular: within normal limits Cervical ROM: within normal limits Mallampati: Class I Dentition: full History/ROS No significant history except as noted Pulmonary Chronic Obstructive Pulmonary Disease and Sleep Apnea home oxygen 4 L continuous. cpap at night. patient arrived to facility without oxygen during ems transport CV/HEM Stable Angina, Coronary Artery Disease and Hypertension None reported Hepatic None reported GI Gastroesophageal Reflux Disease Metabolic Diabetes Mellitus, Morbid Obesity and Thyroid Disease [facility] Lower Back Pain and Weakness Neuropsych Anxiety and Dementia parkinsons Anesthetic Plan ASA status: 4 Anesthesia: MAC Risk of > 500 ml blood loss (7ml/kg in children): Yes, adequate IV access and fluids planned Medications/Allergies Home Medications Medication Instructions Recorded Confirmed Last Taken Type albuterol sulfate 2.5 mg/3 mL 2.5 mg inhalation Q4H PRN Adequate 11/15/20 12/10/22 Unknown History (0.083 %) solution for nebulization Ventilation vitamin with calcium See Rx Instructions .Route 03/14/22 12/10/22 Unknown Rx no.72-iron 27 mg-folic acid 1 mg .COMPLEX #30 tabs tablet (M-Ajzlyn Plus) omeprazole 40 mg capsule,delayed 40 mg PO BID #30 caps 04/05/22 12/10/22 Unknown Rx release buspirone 5 mg tablet See Rx Instructions .Route 06/18/22 12/10/22 Unknown Rx .COMPLEX #60 tabs sertraline 25 mg tablet See Rx Instructions .Route 10/24/22 12/10/22 Unknown Rx .COMPLEX #30 tabs cetirizine 10 mg capsule (Zyrtec) 10 mg PO DAILY PRN seasonal 10/30/22 12/10/22 Unknown Rx allergies #30 caps blood-glucose meter (Blood Glucose #1 ea 11/20/22 12/10/22 Unknown Rx Monitoring kit) Allergies Allergy/AdvReac Type Severity Reaction Status Date / Time No Known Allergies Allergy Verified 12/10/22 10:38 Current Medications Generic Name Dose Route Start Last Admin Trade Name Freq PRN Reason Stop Dose Admin Hydrocodone Bitart/Acetaminophen 1 - 2 tab 12/13/22 20:43 12/13/22 23:01 Hydrocodone-Acetaminophen 5-325 Mg Tablet PO 1 tab Q4H PRN Administration MODERATE TO SEVERE PAIN Buspirone HCl 5 mg 12/13/22 18:48 12/13/22 20:48 Buspirone 10 Mg Tablet PO 5 mg BID RICARDO Administration Dextrose/Lactated Ringer's 1,000 mls @ 125 mls/hr 12/13/22 11:15 12/13/22 20:57 Dextrose 5%-Lactated Ringers IV 125 mls/hr .Q8H RICARDO Administration Ketorolac Tromethamine 30 mg 12/13/22 20:30 12/14/22 03:04 Ketorolac 30 Mg/Ml Inj IVP 12/14/22 08:31 30 mg Q6H RICARDO Administration Sertraline HCl 25 mg 12/13/22 18:47 12/13/22 20:47 Sertraline 50 Mg Tablet PO 25 mg DAILY RICARDO Administration PFSH Anesthesia Medical History Anxiety No pertinent past medical history neghx: htn,dm,thyroid,dvt/pe PCP: None Surgical History Hx of cholecystectomy (~2007) Hx of dilation and curettage (2011) blightetd ovum Family History Family/Other Breast cancer Maternal Great Grandmother--dx age 70's Grandmother Diabetes Paternal Denies family history of Colon cancer Ovarian cancer Heart disease Hypercholesteremia Hypertension Uterine cancer Thyroid disease Stroke Female Reproductive History : 5 Data Anesthesia 12/14/22 02:48 Short CBC 12/13/22 12/14/22 12/14/22 Range/Units 11:55 01:25 02:48 WBC 9.56 Cancelled 12.74 H (3.29-11.43) 10^3/uL Hgb 12.30 Cancelled 10.30 L (11.27-16.99) g/dL Hct 38.2 Cancelled 32.5 L (36-47) % MCV 93.4 Cancelled 94.5 (85-98) fl Plt Count 202 Cancelled 183 (157-399) 10^3/cmm Neut % (Auto) 71.5 % Neut # (Auto) 6.84 (1.8-7.7) 10^3/uL Blood Bank 12/13/22 11:55 Blood Type A Positive Rho(D) Type Positive Antibody Screen Negative Cardiac Studies: No Data to Display
[2022-12-14] MEDS: prenatal vitamin Capsule 1 CAP PO (08:32)
[2022-12-14] MEDS: ferrous sulfate EC 325 mg Tablet PO ×2 (08:32→18:15)
[2022-12-14] MEDS: aspirin 81 mg EC Tablet PO (08:32)
[2022-12-14] MEDS: ibuprofen 800 mg tablet PO ×3 (08:32→21:10)
[2022-12-14] MEDS: docusate sodium 100 mg Capsule PO ×2 (08:32→18:15)
[2022-12-14] MEDS: cetirizine 10 mg Tablet PO (08:32)
[2022-12-14 08:34] VITALS: BP 101/54; PULSE 73
[2022-12-14] MEDS: HYDROcodone-acetaminophen 5-325 mg Tablet PO ×2 (09:28→14:05)
--- NOTE | 2022-12-14 09:35 | P.PN_ITS ---
COTTON CONVERTER Subjective Subjective: Interval history: POD #1 RCS, btl c/o moderate incisional pain, relieved with pain medications eating, voiding well no bleeding Labor: Amniotic Membrane Status: Intact Vitals/I&O/Wt Last Vital Signs Temp 97.7 F 12/14/22 16:32 Pulse 67 12/14/22 21:11 Resp 14 12/13/22 15:00 BP 90/53 12/14/22 21:11 Pulse Ox 100 12/13/22 15:00 O2 Del Method Room Air 12/13/22 09:50 12/14/22 12/14/22 12/15/22 14:59 22:59 06:59 Output Total 700 / 700 Balance -700 / -700 Weight last 48 hrs Weight 187 lb Physical Exam Narrative: Awake, alert, comfortable Afebrile, VS normal Lungs: clear Cor: RRR Abd: soft, nontender Incision clean and dry Ext: nontender Urinary Catheter Management: Richardson: Cath Placed During This Visit: yes, but has since been removed by the nurse Reason for Continuing Indwelling Catheter: Decision to DC Catheter Urinary Catheter Date of Insertion: 12/13/22 Urinary Catheter Time of Insertion: 12:55 Date Urinary Catheter Removed: 12/14/22 Time Urinary Catheter Discontinued: 01:43 Data 12/14/22 02:48 A&P Assessment and plan (1) S/P repeat low transverse : POD #1 repeat , bilateral partial salpingectomy Doing well Continue postop / care Attestations Medical Necessity Statement*: patient is s/p repeat and bilateral partial salpingectomy Coding Level of Care Code Acute Code for Chg Fwd Diagnoses S/P repeat low transverse Z98.891 Time Spent (min) 15
[2022-12-14 16:32] VITALS: BP 103/59; PULSE 73; TEMP 36.5
[2022-12-14] MEDS: simethicone 80 mg Chew PO (18:15)
[2022-12-14] MEDS: BuSPIRONE 10 mg Tablet 5 MG PO (21:09)
[2022-12-14] MEDS: sertraline 50 mg Tablet 25 MG PO (21:10)
[2022-12-14 21:11] VITALS: BP 90/53; PULSE 67
[2022-12-15] MEDS: HYDROcodone-acetaminophen 5-325 mg Tablet PO ×4 (00:23→12:44)
[2022-12-15 04:04] VITALS: BP 112/59; PULSE 77
[2022-12-15] MEDS: ibuprofen 800 mg tablet PO (08:52)
[2022-12-15] MEDS: prenatal vitamin Capsule 1 CAP PO (08:52)
[2022-12-15] MEDS: cetirizine 10 mg Tablet PO (08:52)
[2022-12-15] MEDS: ferrous sulfate EC 325 mg Tablet PO (08:52)
[2022-12-15] MEDS: aspirin 81 mg EC Tablet PO (08:54)
[2022-12-15] MEDS: docusate sodium 100 mg Capsule PO (08:54)
[2022-12-15 10:23] VITALS: BP 110/61; PULSE 77
[2022-12-15] MEDS: calcium carbonate 500 mg Chew Tablet 1000 MG PO (10:51)
--- NOTE | 2022-12-15 11:52 | PM.OBGYDC ---
Discharge Providers PROFESSIONAL SECURITY OFFICER Date of Admission: 12/13/22 10:04 Date of Discharge: 12/15/22 Attending Provider at Admission: Elbert Soler MD Attending Provider at Discharge: Jeffrey Sanders MD Primary PROFESSIONAL SECURITY OFFICER: Elbert Soler MD Diagnoses at Discharge Discharge Diagnosis (1) S/P repeat low transverse : Status: Acute Reason for Visit Reason for Visit: repeat and permanent sterilization Hospital Course Hospital Course Mrs. Gonzalez 37-year-old female was admitted for repeat low-transverse delivery and permanent sterilization. The procedures were performed without complication. Postop observation was uneventful. She is afebrile and hemodynamically stable postoperative day 2. Tolerating diet well. Ambulating without difficulty. She was counseled regarding pelvic rest for 6 weeks (no sex, no tampons, no vaginal douches). Return to the emergency room if any fever, increased bleeding or pain. Information Peripartum Data: Delivery Method: Physical Exam Narrative: GA; alert and oriented x 3 HEENT: normal Breasts: engorged Nipples - skin intact Lungs; clear to auscultation Heart: regular rhythm, no murmurs. Abd: Appropriately tender. BS+. Uterine fundus below umbilicus. No Fundal Tenderness, minimal tenderness, incision clean and dry, no redness, pain or edema. Perineum: normal lochia. Extremities: no edema, no cyanosis, no tenderness. Urinary Catheter Management: Richardson: Cath Placed During This Visit: yes, but has since been removed by the nurse Reason for Continuing Indwelling Catheter: Decision to DC Catheter Urinary Catheter Date of Insertion: 12/13/22 Urinary Catheter Time of Insertion: 12:55 Date Urinary Catheter Removed: 12/14/22 Time Urinary Catheter Discontinued: 01:43 History History History 5 Term 2 0 Miscarriages/Ectopic 2 Living Children 2 Discharge Data Studies Completed and Pending Pending at discharge Category Date Time Status Pathology: Surgical [PTH] Routine Pth 12/13/22 15:00 Received Laboratory Results WBC 12.74 10^3/uL (3.29-11.43) H 12/14/22 02:48 Corrected WBC Cancelled 12/14/22 01:25 RBC 3.44 10^6/uL (3.85-5.65) L 12/14/22 02:48 Hgb 10.30 g/dL (11.27-16.99) L 12/14/22 02:48 Hct 32.5 % (36-47) L 12/14/22 02:48 MCV 94.5 fl (85-98) 12/14/22 02:48 MCH 29.9 pg (27-33) 12/14/22 02:48 MCHC 31.7 g/dL (30-55) 12/14/22 02:48 RDW 13.2 % (12.1-15.1) 12/14/22 02:48 Plt Count 183 10^3/cmm (157-399) 12/14/22 02:48 MPV 10.4 fL (7.4-10.4) 12/14/22 02:48 Neut % (Auto) 71.5 % 12/13/22 11:55 Lymph % (Auto) 20.6 % 12/13/22 11:55 Mccormick % (Auto) 5.9 % 12/13/22 11:55 Eos % (Auto) 1.2 % 12/13/22 11:55 Baso % (Auto) 0.3 % 12/13/22 11:55 Neut # (Auto) 6.84 10^3/uL (1.8-7.7) 12/13/22 11:55 Lymph # (Auto) 2.0 10^3/uL (0.8-4.8) 12/13/22 11:55 Mccormick # (Auto) 0.6 10^3/uL (0.2-0.9) 12/13/22 11:55 Eos # (Auto) 0.1 10^3/uL (0.0-0.8) 12/13/22 11:55 Baso # (Auto) 0.0 10^3/uL (0.0-0.1) 12/13/22 11:55 Nucleated RBC % (auto) 0 % 12/13/22 11:55 Nucleated RBCs # 0.0 /100WBC 12/13/22 11:55 Blood Type A Positive 12/13/22 11:55 Rho(D) Type Positive 12/13/22 11:55 Antibody Screen Negative 12/13/22 11:55 Vitals Last Vital Signs Temp 97.7 F 12/14/22 16:32 Pulse 77 12/15/22 10:23 Resp 14 12/13/22 15:00 BP 110/61 12/15/22 10:23 Pulse Ox 100 12/13/22 15:00 O2 Del Method Room Air 12/13/22 09:50 Results Labs OB ([facility]): Obstetrics US 09/20/22 Blood Type A Positive 12/13/22 Antibody Screen Negative 12/13/22 Hct 32.5 % (36-47) L 12/14/22 Hgb 10.30 g/dL (11.27-16.99) L 12/14/22 Rho(D) Type Positive 12/13/22 Plt Count 183 10^3/cmm (157-399) 12/14/22 Hep Bs Antigen Non-reactive (Nonreactive) 05/07/22 Hepatitis C Antibody Non-reactive (Nonreactive) 05/07/22 Rubella IgG Antibody 83.8 IU/mL (0.0-10.0) H 05/07/22 RPR Nonreactive (Nonreactive) 05/07/22 HIV 1&2 Ab & HIV 1 Ag Non-reactive (Non-Reactiv) 05/07/22 TSH 1.66 uIU/mL (0.27-4.20) 05/07/22 Quad Test Interpret See note 07/09/22 Glucose 1 Hr 50 gm 167 mg/dL (85-140) H 10/01/22 Gest Glucose Tolerance mg/dL 10/22/22 Estriol MoM 0.65 07/09/22 HCG, Qual Positive (Negative) H 05/07/22 Urine Opiates Screen Negative ng/mL (Negative) 06/18/22 Ur Barbiturates Screen Negative ng/mL (Negative) 06/18/22 Ur Phencyclidine Scrn Negative ng/mL (Negative) 06/18/22 Ur Amphetamines Screen Negative ng/mL (Negative) 06/18/22 U Benzodiazepines Scrn Negative ng/mL (Negative) 06/18/22 Urine Cocaine Screen Negative ng/mL (Negative) 06/18/22 U Marijuana (THC) Screen Negative ng/mL (Negative) 06/18/22 Discharge Plan Discharge Patient Disposition: Home Condition: Stable Prescriptions: New hydrocodone-acetaminophen 5-325 mg tablet 1 tab PO Q4H PRN (Reason: pain) Qty: 30 0RF acetaminophen 325 mg capsule 325 mg PO Q4H PRN (Reason: fever or pain) Qty: 60 0RF ibuprofen 800 mg tablet 800 mg PO TID PRN (Reason: pain) Qty: 60 0RF docusate sodium [Colace] 100 mg capsule 100 mg PO BID Qty: 60 0RF ferrous sulfate [Iron (ferrous sulfate)] 325 mg (65 mg iron) tablet 325 mg PO BID Qty: 60 0RF Continued albuterol sulfate 2.5 mg /3 mL (0.083 %) solution for nebulization 2.5 mg inhalation Q4H PRN (Reason: Adequate Ventilation) omeprazole 40 mg capsule,delayed release(DR/EC) 40 mg PO BID Qty: 30 11RF M- Plus 27 mg iron- 1 mg tablet See Rx Instructions .ROUTE .COMPLEX Qty: 30 12RF Dose Instruction: TAKE ONE TABLET BY MOUTH ONCE DAILY Rx Instructions: TAKE ONE TABLET BY MOUTH ONCE DAILY buspirone 5 mg tablet See Rx Instructions .ROUTE .COMPLEX Qty: 60 3RF Dose Instruction: TAKE ONE TABLET BY MOUTH TWICE DAILY Rx Instructions: TAKE ONE TABLET BY MOUTH TWICE DAILY sertraline 25 mg tablet See Rx Instructions .ROUTE .COMPLEX Qty: 30 5RF Dose Instruction: TAKE ONE TABLET BY MOUTH ONCE DAILY Rx Instructions: TAKE ONE TABLET BY MOUTH ONCE DAILY Zyrtec 10 mg capsule 10 mg PO DAILY PRN (Reason: seasonal allergies) Qty: 30 6RF (DME) blood-glucose meter [Blood Glucose Monitoring] Kit See Rx Instructions .Route Qty: 1 0RF Rx Instructions: also strips and lancets to include bs checks fasting and 2 hour PP oxycodone-acetaminophen [Percocet] 5-325 mg tablet 1 tab PO TID PRN (Reason: pain) 7 Days Qty: 30 0RF Discharge Orders: Discharge Order (Routine); Ordered 12/15/22 Ordered By: Jeffrey Sanders Referrals: Elbert Soler MD [Physician] - 2 weeks Discharge Diet: Usual diet Discharge Activity: Limit activity as instructed Patient Instructions: Depression (DC), Bleeding (DC), Preeclampsia and Eclampsia After Delivery (GEN), OB Abdominal Surgery - [facility], OB [facility], OB Discharge Report, OB Food/Drug Interaction Guide, Opioid Safety, OB Home Care Activity Restrictions/Additional Instructions: 1. Please call [facility] on next working day to make your post-operative appointment in 2 weeks. 2. Please stay home until you come back to the clinic on first post-hospatilization check up. 3. Please follow instructions on your medications CAREFULLY. 4. If you have abdominal incision, do not cover it unless dressing is necessary because of drainage. OK to shower, but avoid bath. Leave steri-strips until they fall off. If they are still on one week after surgery, you may remove them. 5. If you had vaginal surgery or vaginal repair, Dr. Sanders may instruct you to take SITZ bath. 6. Yellow, blood tinged odorous vaginal discharge is usually normal after hysterectomy or vaginal surgeries. 7. No SEXUAL INTERCOURSE, tampons, or douches until you are completely released from the post-operative care. 8. Avoid constipation by eating right and maybe using some Metamucil or Milk of Magnesia. 9. All prescription refills are given during the working hours. Please do no wait till it runs out. Call the clinic at [phone] before your medication runs out. The clinic will get in touch with your doctor to prescribe medications if necessary. 10. Please remain within 40 mile radius from our hospital because emergencies do happen now and then during the post-operative period. 11. If you have stairs at home, take one step at a time slowly and minimize the number of trips. It helps to stay in one floor for the next few days. No lifting except what you can lift by one hand until you are released from the post-operative care. 12. Driving is discouraged until you are well healed. It may be 3-4 weeks before you feel strong enough to drive. You should be able to turn and look through the rear window without pain and you should be able to push the brake pedal very hard without pain before you drive. No fast rules, but SAFETY should be your primary concern. DO NOT drive if you are on sedating medications such as narcotics. 13. Call the clinic (during working hours) to make urgent appointment or go to the Emergency room, if any of the following occurs: i. Vaginal bleeding becomes heavy, more than a period. ii. Incision becomes red and sore, or drains pus. iii. Your TEMPERATURE is over 100.4F or you have chill. iv. IV site becomes red and swollen (a little ``knot?? is usually OK) v. Persistent nausea and vomiting vi. Persistent constipation or diarrhea vii. Rash or allergic reaction to medications. Discharge Attestations PROFESSIONAL SECURITY OFFICER Time Spent in Discharge Care*: greater than 30 min Coding Level of Care Code Acute Code for Chg Fwd Diagnoses S/P repeat low transverse Z98.891
[2022-12-15 12:27] VITALS: BP 117/56; PULSE 83
[2022-12-15 13:00] VITALS: BP 117/56; PULSE 83; RESP 16; TEMP 36.7
== END 2022-12-15 13:15 | disposition home or self-care (01) | DRG 785 ==
PROVIDERS: Admitting Provider Obstetrics & Gynecology; Visit Provider Obstetrics & Gynecology
PROC: 10D00Z1 Extraction of Products of Conception, Low, Open Approach (ICD-10-PCS; CPT 59514; principal; 2022-12-13 12:00)
DX: O34.211 Maternal care for low transverse scar from previous cesarean delivery (principal); Z3A.40 40 weeks gestation of pregnancy; Z37.0 Single live birth; O99.344 Other mental disorders complicating childbirth; F41.9 Anxiety disorder, unspecified; O75.89 Other specified complications of labor and delivery; K21.9 Gastro-esophageal reflux disease without esophagitis; J45.909 Unspecified asthma, uncomplicated; Z30.2 Encounter for sterilization
CPT/HCPCS: 36415; 51702; 58611; 59025; 59409; 85025; 85027; 86850; 86900; 88302; 96374; J0330; J0690; J1170; J1885; J2274; J2704; J2765; J2795; J3010; J3490; J7120; J7121